=== PATIENT | male | born 1975 | race American Indian/Alaskan Native ===

== ENCOUNTER 2016-07-30 00:09 | Emergency (ER) | payer SELFPAY ==
[2016-07-30 01:06] VITALS: BP 151/99
== END 2016-07-30 05:40 | disposition left against medical advice (07) ==
LOC: ED 00:09
DX: M25.571 Pain in right ankle and joints of right foot (principal); Z53.21 Procedure and treatment not carried out due to patient leaving prior to being seen by health care provider

== ENCOUNTER 2016-07-30 13:42 | Emergency (ER) | payer SELFPAY | END 2016-07-30 15:40 | disposition left against medical advice (07) | LOC: ED 13:42 | DX: M10.9 Gout, unspecified (principal); Z53.21 Procedure and treatment not carried out due to patient leaving prior to being seen by health care provider ==

== ENCOUNTER 2016-07-31 11:00 | Emergency (ER) | payer OTHER ==
--- NOTE | 2016-07-31 14:37 | Emergency Department Report ---
HPI - General Chief Complaint: Extremity Injury, Lower Time Seen by Provider: 07/31/16 14:23 - HPI HPI: Patient here complaining of gout to right ankle. Pain is 8 out of 10. He said he's been needed in full drinking beer for the . Patient reports that he usually takes: Albert but is out. She does not take any maintenance medication for his gout. Patient blood pressure is elevated and he said it's because of pain. Denies any trauma or numbness or tingling to right ankle ED Past Medical Hx - Past Medical History Previous Medical History?: Yes Additional medical history: gout - Surgical History Past Surgical History?: No - Family History Family history: hypertension - Social History Smoking Status: Never Smoker Substance Use Type: Alcohol - Medications Home Medications: Home Medications Medication Instructions Recorded Confirmed Last Taken Type traMADol [Ultram 50 MG tab] 50 mg PO Q6HR PRN #14 tablet 01/24/16 Unknown Rx Colchicine [Colcrys] 0.6 mg PO QDAY #25 tab 07/31/16 Unknown Rx Ibuprofen [Motrin 800 MG tab] 800 mg PO Q8HR PRN #21 tablet 07/31/16 Unknown Rx Prednisone [predniSONE 10 mg 10 mg PO .TAPER #1 tab.ds.pk 07/31/16 Unknown Rx (6-Day Pack, 21 Tabs)] ED Review of Systems ROS: Stated complaint: GOUT Other details as noted in HPI Comment: All other systems reviewed and negative Constitutional: no symptoms reported Respiratory: no symptoms reported Cardiovascular: denies: chest pain, palpitations, edema, syncope Gastrointestinal: denies: abdominal pain, nausea, vomiting, diarrhea Musculoskeletal: joint swelling, arthralgia. denies: back pain Skin: denies: rash Neurological: denies: headache, weakness, numbness, paresthesias, abnormal gait , vertigo Physical Exam - Physical Exam Vital Signs: Vital Signs 07/31/16 12:44 Temperature 98.4 F Pulse Rate 85 Respiratory 18 Rate Blood Pressure 153/101 O2 Sat by Pulse 98 Oximetry Vital Signs 07/31/16 07/31/16 12:44 16:23 Temperature 98.4 F Pulse Rate 85 86 Respiratory 18 20 Rate Blood Pressure 153/101 Blood Pressure 148/100 [Right] O2 Sat by Pulse 98 Oximetry General: This is a 41-year-old male well-nourished well-developed in no acute distress Physical Exam: Head: Normocephalic atraumatic Neck: Supple, no C-spine tenderness, no tracheal deviation. Nontender to palpate. no adenopathy Eyes: Bilateral pupils equal and reactive to light, bilateral EOM intact. Bilateral sclera and conjunctiva without injection. Normal accommodation Lungs: Clear to auscultate bilaterally no rhonchi wheezes or rales. Normal work of breathing Skin: Range of motion to all extremities. +5/5 strength in all extremities extremity; mild swelling without any erythema to right ankle . Area is warm to touch and tender to palpate ,+2 pedal pulses. No neurovascular compromise. Capillary refill less than 3 seconds. No signs of tendon or ligament injuries. No calcaneal tenderness. No foot drop. MSK: Full range of motion to all extremities. +5/5 strength in all extremities. Patient able ambulate with limited pain. Cardiovascular: S1-S2, regular rate rhythm. No murmurs. Skin: clean Dry and intact no rash no lesions Psych: Normal mood and behavior MSK: ED Course Vital Signs 07/31/16 12:44 Temperature 98.4 F Pulse Rate 85 Respiratory 18 Rate Blood Pressure 153/101 O2 Sat by Pulse 98 Oximetry Vital Signs 07/31/16 07/31/16 12:44 16:23 Temperature 98.4 F Pulse Rate 85 86 Respiratory 18 20 Rate Blood Pressure 153/101 Blood Pressure 148/100 [Right] O2 Sat by Pulse 98 Oximetry - Reevaluation(s) Reevaluation #1: 07/31/16 21:04 Patient given Toradol 30 mg and Decadron 10 mg IM and emergency room which relieved his pain. ED Medical Decision Making - Medical Decision Making ED course: Patient with gouty attack. I explained to patient that he needs to avoid eating food that is high in.. He is aware of that is high in. But it was a Super Bowl and eating got out of hand. Pain is down to 3 out of 10. PT given prescription for Motrin, prednisone and Colcrys. Charged home to follow- up with primary care physician. Critical care attestation.: If time is entered above; I have spent that time in minutes in the direct care of this critically ill patient, excluding procedure time. ED Disposition Clinical Impression: Arthralgia of ankle, right Gout attack Qualifiers: Gout site: ankle Gout etiology: unspecified cause Laterality: right Qualified Code(s): M10.9 - Gout, unspecified Disposition: DISCHARGED TO HOME OR SELFCARE Is pt being admited?: No Does the pt Need Aspirin: No Condition: Stable Instructions: Low Purine Diet (ED), Acute Gouty Arthritis (ED), Arthralgia (ED) Prescriptions: Colchicine [Colcrys] 0.6 mg PO QDAY #25 tab Ibuprofen [Motrin 800 MG tab] 800 mg PO Q8HR PRN #21 tablet PRN Reason: Pain Prednisone [predniSONE 10 mg (6-Day Pack, 21 Tabs)] 10 mg PO .TAPER #1 tab.ds.pk Referrals: [facility] [Outside] - 08/02/16 Forms: Work/School Release Form(ED)
[2016-07-31] MEDS: TORADOL IM ONE (14:51)
[2016-07-31] MEDS: DECADRON IM ONE (14:51)
[2016-07-31 16:24] VITALS: BP 148/100
== END 2016-07-31 16:22 | disposition home or self-care (01) ==
LOC: ED 11:00
DX: M10.9 Gout, unspecified (principal); M25.571 Pain in right ankle and joints of right foot
CPT/HCPCS: 96372; 99282; J1100; J1885

== ENCOUNTER 2017-07-11 23:29 | Emergency (ER) | payer SELFPAY ==
[2017-07-12] MEDS ORDERED: DELTASONE PO ONE (05:07)
[2017-07-12] MEDS ORDERED: MOTRIN PO ONE (05:07)
[2017-07-12] MEDS ORDERED: NORCO 5/325 PO ONE (05:07)
--- NOTE | 2017-07-12 05:08 | Emergency Department Report ---
HPI - General Chief Complaint: Extremity Injury, Lower Time Seen by Provider: 07/12/17 04:54 - HPI HPI: Patient reports that his gout is acting up. He said he took his last Colcrysyesterday and now he is in pain at 7 out of 10 and throbbing to his left great toe. Patient said he had some fish and he thinks that's why sugar of the gout flare up. He is requesting a refill on Colcrys. Patient said he took some [id number] pain medication but it didn't work. Pain is worse with movement better with rest ED Past Medical Hx - Past Medical History Previous Medical History?: Yes Additional medical history: gout - Surgical History Past Surgical History?: No - Family History Family history: no significant - Social History Smoking Status: Never Smoker Substance Use Type: None - Medications Home Medications: Home Medications Medication Instructions Recorded Confirmed Last Taken Type traMADol [Ultram 50 MG tab] 50 mg PO Q6HR PRN #14 tablet 01/24/16 Unknown Rx Colchicine [Colcrys] 0.6 mg PO QDAY PRN #15 tab 07/12/17 Unknown Rx Ibuprofen [Motrin 800 MG tab] 800 mg PO Q8HR PRN 5 Days #15 07/12/17 Unknown Rx tablet Prednisone [predniSONE 10 mg 10 mg PO .TAPER 6 Days #1 tab.ds.pk 07/12/17 Unknown Rx (6-Day Pack, 21 Tabs)] ED Review of Systems ROS: Stated complaint: GOUT IN L FOOT Other details as noted in HPI Comment: All other systems reviewed and negative Constitutional: no symptoms reported Respiratory: no symptoms reported Cardiovascular: denies: chest pain, palpitations, dyspnea on exertion, orthopnea , edema, syncope, paroxysmal nocturnal dyspnea Gastrointestinal: denies: abdominal pain, diarrhea, constipation, hematemesis Genitourinary: denies: dysuria Musculoskeletal: denies: back pain, arthralgia, myalgia Skin: denies: rash Neurological: denies: headache, numbness, paresthesias, abnormal gait Physical Exam - Physical Exam Vital Signs: Vital Signs 07/11/17 23:44 Temperature 97.6 F Pulse Rate 77 Respiratory 18 Rate Blood Pressure 132/80 [Left] O2 Sat by Pulse 100 Oximetry General: This is a 42-year-old male well-nourished well-developed in no acute distress. Physical Exam: Head: Normocephalic, atraumatic, no abrasion, no bruising and no contusion. Eyes: Biateral pupils equal and reactive to light, bilateral EOM intact.. Bilateral conjunctival and sclera without injection, normal accommodation. No nystagmus Mouth: Moist, no pharyngeal exudate or erythema. No peritonsillar abscesses. Uvula is midline and oral airways patent. Cardiovascular: S1, S2. Regular rate and rhythm. No murmur. Capillary refill is less then 3 seconds. Lungs: Clear to auscultate bilaterally. No rhonchi, wheezes or rales. No chest wall tenderness. No chest contusion. No bruising to chest. MSK: Strength 5/5 in all extremities. No joint deformity or crepitus. Normal inspection. Full range of motion to all extremities. No laceration, abrasion or ecchymotic area noted. Abdomen: Non-tender to palpate in all quadrants, no guarding or rebound tenderness, positive bowel sounds in all quadrants. No CVA tenderness. No hernia, bruit or mass. No rigidity or distention. Extremities: No clubbing, cyanosis . Patient with swelling and mild erythema with tenderness to palpate to left great toe extending into left foot area. +2 pulses. No neurovascular compromise Skin: Clean, dry and intact. No rash or lesions. Psych: Normal mood and behavior ED Course Vital Signs 07/11/17 23:44 Temperature 97.6 F Pulse Rate 77 Respiratory 18 Rate Blood Pressure 132/80 [Left] O2 Sat by Pulse 100 Oximetry - Reevaluation(s) Reevaluation #1: 07/12/17 05:34 Patient received [place] 5/325 2 tablets in the emergency room, Motrin 600 mg by mouth and prednisone 60 mg by mouth. ED Medical Decision Making - Medical Decision Making ED course: Patient with acute gout flareup with complaints of pain and requests then that his medication for gout be refilled. Patient with positive gout flare to left great toe. He was given Birds[place] 5/325 2 tablets, Motrin 600 mg and prednisone 60 mg when necessary emergency room. Patient stable. I reinforced with him low purine diet. Patient does not have a primary care physician and said he comes to the emergency room to get his medication refill. He was here last on 07/31/2016 for similar symptoms. I discussed the patient that I will refer him to [facility] that he will need to call to schedule an appointment to manage his chronic medical problem. He voiced understanding. Patient discharged home with prescription for colchicine, Motrin and prednisone. Critical care attestation.: If time is entered above; I have spent that time in minutes in the direct care of this critically ill patient, excluding procedure time. ED Disposition Clinical Impression: Arthralgia of left foot Acute gout Qualifiers: Gout site: toe Gout etiology: unspecified cause Laterality: left Qualified Code (s): M10.9 - Gout, unspecified Disposition: [id number] PSY HOSP/PSY UNIT Is pt being admited?: No Does the pt Need Aspirin: No Condition: Stable Instructions: Arthralgia (ED), Acute Gouty Arthritis (ED), Low Purine Diet (ED) Additional Instructions: Please follow up with outside Medical Center for primary care visits. See discharge instruction paperwork for address and phone number Take medication as prescribed Increase your fluid intake See diet that is low in purine to avoid gout flareup Prescriptions: Colchicine [Colcrys] 0.6 mg PO QDAY PRN #15 tab PRN Reason: GOUT Ibuprofen [Motrin 800 MG tab] 800 mg PO Q8HR PRN 5 Days #15 tablet PRN Reason: Pain Prednisone [predniSONE 10 mg (6-Day Pack, 21 Tabs)] 10 mg PO .TAPER 6 Days #1 tab.ds.pk Referrals: [facility] [Outside] - 2-3 Days Forms: Work/School Release Form(ED)
[2017-07-12 05:54] VITALS: BP 130/74
== END 2017-07-12 05:54 ==
LOC: ED 23:29
DX: M10.9 Gout, unspecified (principal)
CPT/HCPCS: 99282; J7512

== ENCOUNTER 2021-07-08 14:23 | Emergency (ER) | payer SELFPAY ==
[2021-07-08 15:15] VITALS: BP 130/71
[2021-07-08] MEDS ORDERED: dexAMETHasone 20 MG/5 ML VIAL IM ONE (15:17)
[2021-07-08] MEDS ORDERED: KETOROLAC 10 MG TAB PO ONE (15:17)
--- NOTE | 2021-07-08 15:19 | Emergency Department Report ---
ED Extremity Problem HPI - General Chief complaint: Extremity Injury, Lower Stated complaint: GOUT PAIN Time Seen by Provider: 07/08/21 15:11 Source: patient Mode of arrival: Ambulatory Limitations: No Limitations - History of Present Illness Initial comments: 46-year-old -Indian male with a history of gout presents to the ER today with complaint of gout flareup to his knees. Patient states that the pain in his knees flared up about a week ago. He reports that the right knee is worse than the left. He reports swelling to both knees. Patient states that he typically has colchicine at home to take as needed when he flares up with the gout, but he has been out for about a month. He currently has no primary care doctor. He denies any bruising, redness, calf pain, chest pain, shortness of breath, fever or chills. MD Complaint: joint swelling, joint paint -: week(s) (1) - Related Data Previous Rx's Medication Instructions Recorded Last Taken Type Ibuprofen [Motrin 800 MG tab] 800 mg PO Q8HR PRN 5 Days #15 07/12/17 Unknown Rx tablet Acetaminophen/Codeine [Tylenol 1 tab PO Q6H PRN #12 tab 07/08/21 Unknown Rx /Codeine # 3 tab] Colchicine [Colcrys] 0.6 mg PO QDAY PRN #15 tab 07/08/21 Unknown Rx methylPREDNISolone [Medrol 4MG 4 mg PO DAILY #1 pack 07/08/21 Unknown Rx DOSEPAK (21 tabs)] Allergies Allergy/AdvReac Type Severity Reaction Status Date / Time No Known Allergies Allergy Verified 03/05/14 01:01 ED Review of Systems ROS: Stated complaint: GOUT PAIN Other details as noted in HPI Comment: All other systems reviewed and negative Musculoskeletal: joint swelling, arthralgia ED Past Medical Hx - Past Medical History Additional medical history: gout - Social History Smoking Status: Never Smoker Substance Use Type: None - Medications Home Medications: Home Medications Medication Instructions Recorded Confirmed Last Taken Type Ibuprofen [Motrin 800 MG tab] 800 mg PO Q8HR PRN 5 Days #15 07/12/17 Unknown Rx tablet Acetaminophen/Codeine [Tylenol 1 tab PO Q6H PRN #12 tab 07/08/21 Unknown Rx /Codeine # 3 tab] Colchicine [Colcrys] 0.6 mg PO QDAY PRN #15 tab 07/08/21 Unknown Rx methylPREDNISolone [Medrol 4MG 4 mg PO DAILY #1 pack 07/08/21 Unknown Rx DOSEPAK (21 tabs)] ED Physical Exam - General Limitations: No Limitations General appearance: alert, in no apparent distress - Respiratory Respiratory exam: Absent: respiratory distress - Cardiovascular Cardiovascular Exam: Present: regular rate - Expanded Lower Extremity Exam Right Knee exam: Present: normal inspection, full ROM, tenderness, full knee extension. Absent: swelling, abrasion, laceration, ecchymosis, deformity, crepidus, dislocation, erythema, effusion Neuro vascular tendon exam: Present: no vascular compromise. Absent: abnormal cap refill, motor deficit, sensory deficit, tendon deficit Gait: Positive: observed and normal Left Knee exam: Present: full ROM (but painful ), tenderness (diffuse), swelling (mild ). Absent: abrasion, laceration, ecchymosis, deformity, crepidus, dislocation, erythema, effusion Neuro vascular tendon exam: Present: no vascular compromise. Absent: abnormal cap refill, motor deficit, sensory deficit, tendon deficit Gait: Positive: not tested/not observed - Neurological Exam Neurological exam: Present: alert, oriented X3, CN II-XII intact, normal gait - Psychiatric Psychiatric exam: Present: normal affect, normal mood - Skin Skin exam: Present: intact ED Course Vital Signs 07/08/21 15:08 Temperature 98.3 F Pulse Rate 89 Respiratory 18 Rate Blood Pressure 130/71 O2 Sat by Pulse 98 Oximetry Critical care attestation.: If time is entered above; I have spent that time in minutes in the direct care of this critically ill patient, excluding procedure time. ED Disposition Clinical Impression: Gouty arthritis of both knees Disposition: 01 HOME / SELF CARE / HOMELESS Is pt being admited?: No Does the pt Need Aspirin: No Condition: Stable Instructions: Low-Purine Eating Plan Additional Instructions: Take the tylenol 3 and the medrol dose pack as prescribed. You'll be given a prescription for few colchicine to take for any future flareups. It is important that you try to establish with a primary care doctor to continue getting refills on colchicine. If you do not have a primary care doctor 1 will be provided. Discharge instructions. Return to the ER if your symptoms worsens or changes in any way. Prescriptions: Colchicine [Colcrys] 0.6 mg PO QDAY PRN #15 tab PRN Reason: GOUT methylPREDNISolone [Medrol 4MG DOSEPAK (21 tabs)] 4 mg PO DAILY #1 pack Acetaminophen/Codeine [Tylenol /Codeine # 3 tab] 1 tab PO Q6H PRN #12 tab PRN Reason: Pain , Severe (7-10) Referrals: PATRICA LEE MD [Staff Physician] - 3-5 Days BLANQUITA PRINCE MD [Staff Physician] - 3-5 Days Forms: Work/School Release Form(ED) Time of Disposition: 15:21
== END 2021-07-08 15:30 | disposition home or self-care (01) ==
LOC: ED 14:23
DX: M10.9 Gout, unspecified (principal)
CPT/HCPCS: 96372; 99281; J1100

== ENCOUNTER 2021-12-31 08:21 | Emergency (ER) | payer SELFPAY ==
[2021-12-31 08:47] VITALS: BP 119/78
[2021-12-31] MEDS ORDERED: LIDOCAINE (2%) 20 MG/1 ML VIAL 20 ML MDV INFILTRATI ONE (10:53)
[2021-12-31] MEDS ORDERED: TETANUS,DIPH,PERTUSS(ACELL) VACCINE 0.5 ML SYRINGE IM ONE (10:53)
[2021-12-31] MEDS ORDERED: HYDROcodone/ACETAMINOPHEN 10-325MG TAB PO ONE (10:55)
--- NOTE | 2021-12-31 11:06 | Emergency Department Report ---
- General Chief Complaint: Wound/Laceration Stated Complaint: LAC/FINGER Time Seen by Provider: 12/31/21 10:46 Source: patient Mode of arrival: Ambulatory Limitations: No Limitations - History of Present Illness Initial Comments: This is a 46-year-old male nontoxic, well nourished in appearance, no acute signs of distress presents to the ED with c/o of right 4th and 5th finger la ceration. Patient stated that he was working on a car today prior to arrival which caused the laceration. Patient denies decreased sensation or range of motion. Patient stated bleeding is under control. Denies any numbness, tingling, fever, chills, nausea, vomiting, chest pain, shortness of breath, headache or stiff neck. Patient denies any allergies to significant past medical history. Patient is that he is not up-to-date with tetanus. -: This morning Patient Tetanus UTD: No Context: accidental Associated Symptoms: pain. denies: loss of feeling/numbness, suspect foreign body present, unable to move injured part, weakness followed by dizziness, nausea/vomiting, fever - Related Data Previous Rx's Medication Instructions Recorded Last Taken Type Ibuprofen [Motrin 800 MG tab] 800 mg PO Q8HR PRN 5 Days #15 07/12/17 Unknown Rx tablet Acetaminophen/Codeine [Tylenol 1 tab PO Q6H PRN #12 tab 07/08/21 Unknown Rx /Codeine # 3 tab] Colchicine [Colcrys] 0.6 mg PO QDAY PRN #15 tab 07/08/21 Unknown Rx methylPREDNISolone [Medrol 4MG 4 mg PO DAILY #1 pack 07/08/21 Unknown Rx DOSEPAK (21 tabs)] Naproxen 500 mg PO Q8H PRN #20 tab 12/31/21 Unknown Rx cephALEXin [Keflex] 500 mg PO Q8HR #21 cap 12/31/21 Unknown Rx Allergies Allergy/AdvReac Type Severity Reaction Status Date / Time No Known Allergies Allergy Verified 03/05/14 01:01 ED Review of Systems ROS: Stated complaint: LAC/FINGER Other details as noted in HPI Comment: All other systems reviewed and negative Constitutional: denies: chills, fever Eyes: denies: eye pain, eye discharge, vision change ENT: denies: ear pain, throat pain Respiratory: denies: cough, shortness of breath, wheezing Cardiovascular: denies: chest pain, palpitations Endocrine: no symptoms reported Gastrointestinal: denies: abdominal pain, nausea, diarrhea Genitourinary: denies: urgency, dysuria Musculoskeletal: denies: back pain, joint swelling, arthralgia Skin: denies: rash, lesions Neurological: denies: headache, weakness, paresthesias Psychiatric: denies: anxiety, depression Hematological/Lymphatic: denies: easy bleeding, easy bruising ED Past Medical Hx - Past Medical History Additional medical history: gout - Surgical History Past Surgical History?: No - Social History Smoking Status: Never Smoker - Medications Home Medications: Home Medications Medication Instructions Recorded Confirmed Last Taken Type Ibuprofen [Motrin 800 MG tab] 800 mg PO Q8HR PRN 5 Days #15 07/12/17 Unknown Rx tablet Acetaminophen/Codeine [Tylenol 1 tab PO Q6H PRN #12 tab 07/08/21 Unknown Rx /Codeine # 3 tab] Colchicine [Colcrys] 0.6 mg PO QDAY PRN #15 tab 07/08/21 Unknown Rx methylPREDNISolone [Medrol 4MG 4 mg PO DAILY #1 pack 07/08/21 Unknown Rx DOSEPAK (21 tabs)] Naproxen 500 mg PO Q8H PRN #20 tab 12/31/21 Unknown Rx cephALEXin [Keflex] 500 mg PO Q8HR #21 cap 12/31/21 Unknown Rx ED Physical Exam - General Limitations: No Limitations General appearance: alert, in no apparent distress - Head Head exam: Present: atraumatic, normocephalic - Eye Eye exam: Present: normal appearance - Neck Neck exam: Present: normal inspection, full ROM. Absent: lymphadenopathy - Respiratory Respiratory exam: Absent: respiratory distress - Cardiovascular Cardiovascular Exam: Present: regular rate - Extremities Exam Extremities exam: Present: full ROM, tenderness, normal capillary refill. Absent: joint swelling - Expanded Upper Extremity Exam Right General: Present: normal inspection Shoulder Exam: Present: normal inspection, full ROM. Absent: tenderness, swelling Upper Arm exam: Present: normal inspection, full ROM. Absent: tenderness, swelling Elbow exam: Present: normal inspection, full ROM. Absent: tenderness, swelling Forearm Wrist exam: Present: normal inspection, full ROM. Absent: tenderness, swelling Hand Wrist exam: Present: full ROM, tenderness, laceration. Absent: swelling, abrasion, ecchymosis, deformity, crepidus, dislocation, erythema, amputation, nail avulsion, subungual hematoma Hand L/R Front: 1 - Positive: laceration (Irregular about 3 cm laceration near) 2 - Positive: laceration (Irregular about 4 cm laceration here) Vascular: Present: normal capillary refill. Absent: vascular compromise (Neurovascular within normal limits) - Back Exam Back exam: Present: full ROM - Neurological Exam Neurological exam: Present: alert, oriented X3, normal gait - Psychiatric Psychiatric exam: Present: normal affect, normal mood - Skin Skin exam: Present: warm, dry, intact, normal color. Absent: rash ED Course Vital Signs 12/31/21 08:43 Temperature 98.3 F Pulse Rate 86 Respiratory 18 Rate Blood Pressure 119/78 O2 Sat by Pulse 96 Oximetry - Reevaluation(s) Reevaluation #1: 12/31/21 11:06 Patient is speaking in full sentences with no signs of distress noted. - Laceration /Wound Repair Right Finger Wound Location: upper extremity Wound Length (cm): 3 Wound's Depth, Shape: irregular Wound Explored: clean Irrigated w/ Saline (ccs): 40 Betadine Prep?: Yes Volume Anesthetic (ccs): 4 (lidocaine 2% plain) Wound Repaired With: sutures Suture Size/Type: 5:0, proline Number of Sutures: 23 Sterile Dressing Applied?: Yes Progress: Under sterile field, I used Betadine to clean the area. I then used 40 mL of normal saline to flush the area. I then used 2% lidocaine plain and injected 4 mL to right fifth finger digital block and 4 ml to the right fourth finger digital block. I then used a 5-0 Prolene to suture the laceration. Number of stitches 12 to right 5th finger and 11 sutures to right 4th finger. I then applied a sterile 4 x 4 with tape. Minimal bleeding noted but is under control. Patient tolerated procedure well with no signs of distress. ED Medical Decision Making - Radiology Data [facility] [address] [place] [address] XRay Report Signed Patient: ROBBIN MAYORGA MR#: [id number] : 1975 Acct:[id number] Age/Sex: 46 / M ADM Date: 12/31/21 Loc: ED Attending Dr: Ordering Physician: RAYMON LIU NP Date of Service: 12/31/21 Procedure(s): XR hand 3+V RT Accession Number(s): [id number] cc: RAYMON LIU NP Fluoro Time In Minutes: RIGHT HAND 3 VIEWS INDICATION: 4th and 5th fingers lac. COMPARISON: None. IMPRESSION: Soft tissue defect/lacerations are identified medially on digits 4 and 5. No radiopaque foreign body is detected on x-ray. No acute osseous injury or joint pathology. Signer Name: Mark Jessica Jr, MD Signed: 12/31/2021 11:11 AM Workstation Name: [id number] Transcribed By: TTR Dictated By: MARK JESSICA JR, MD Electronically Authenticated By: MARK JESSICA JR, MD Signed Date/Time: 12/31/21 1111 DD/ 1111 TD/TT: - Medical Decision Making This is a 46-year-old male that presents with laceration. Patient is stable and was examined by me. The laceration suturing has been performed and has been performed and patient tolerated well. A sterile dressing has been applied. Patient was educated on proper wound care. Patient is discharged with Keflex and naproxen. Patient was instructed to return in 10 days for suture removal. Patient received a tetanus booster in ER. Patient was instructed to refer to Follow-up with a primary care doctor in 3-5 days or if symptoms worsen and continue return to emergency room as soon as possible. At time of discharge, the patient does not seem toxic or ill in appearance. No acute signs of distress noted. Patient agrees to discharge treatment plan of care. No further questions noted by the patient. Critical care attestation.: If time is entered above; I have spent that time in minutes in the direct care of this critically ill patient, excluding procedure time. ED Disposition Clinical Impression: Laceration Disposition: HOME / SELF CARE / HOMELESS Is pt being admited?: No Does the pt Need Aspirin: No Condition: Stable Instructions: Laceration Care, Adult Additional Instructions: Follow-up with a primary care doctor in 3-5 days or if symptoms worsen and continue return to emergency room as soon as possible. Return in 10 days for suture removal. No physical activity that extremity until suture removal. Prescriptions: cephALEXin [Keflex] 500 mg PO Q8HR #21 cap Naproxen 500 mg PO Q8H PRN #20 tab PRN Reason: Pain , Severe (7-10) Referrals: PATRICA LEE MD [Primary Care Provider] - 3-5 Days PRIMARY CAREMD [Referring] - 3-5 Days Forms: Work/School Release Form(ED) Time of Disposition: 12:46
--- NOTE | 2021-12-31 11:20 | XRay Report ---
RIGHT HAND 3 VIEWS INDICATION: 4th and 5th fingers lac. COMPARISON: None. IMPRESSION: Soft tissue defect/lacerations are identified medially on digits 4 and 5. No radiopaque foreign body is detected on x-ray. No acute osseous injury or joint pathology. Signer Name: Mark Jessica Jr, MD Signed: 12/31/2021 11:11 AM Workstation Name: [id number]
== END 2021-12-31 12:59 | disposition home or self-care (01) ==
LOC: ED 08:21
DX: S61.214A Laceration without foreign body of right ring finger without damage to nail, initial encounter (principal); S61.216A Laceration without foreign body of right little finger without damage to nail, initial encounter; M10.9 Gout, unspecified; X58.XXXA Exposure to other specified factors, initial encounter; Y93.89 Activity, other specified; Y92.89 Other specified places as the place of occurrence of the external cause; Y99.8 Other external cause status
CPT/HCPCS: 12002; 73130; 90471; 90715; 99283; J3490

== ENCOUNTER 2022-01-11 12:20 | Emergency (ER) | payer SELFPAY ==
[2022-01-11 13:07] VITALS: BP 136/92
--- NOTE | 2022-01-11 13:42 | Emergency Department Report ---
- General Chief Complaint: Laceration/Recheck/Suture Stated Complaint: STICHES REMOVED FROM RIGHT HAND Source: patient Mode of arrival: Ambulatory Limitations: No Limitations - History of Present Illness Initial Comments: Patient is a 46-year-old -[place] male with a history of gouty arthropathy who presents to the ED for wound recheck and suture removal from a previously sutured right ring and small finger lacerations. Patient states that the pain has been worsening and that the wounds have been draining thick purulent discharge. Patient states that he has not been compliant with the antibiotics that were previously prescribed. Patient denies fever, chills, nausea and vomiting, numbness and tingling or weakness of right hand right ring and small fingers. -: Gradual, days(s) (11) Extremity Location: Right: Hand (right small and ring finger wounds) Place: home Patient Tetanus UTD: Yes Context: accidental Associated Symptoms: pain. denies: loss of feeling/numbness, suspect foreign body present, unable to move injured part, weakness followed by dizziness, nausea/vomiting, fever Treatments Prior to Arrival: bandage - Related Data Previous Rx's Medication Instructions Recorded Last Taken Type Colchicine [Colcrys] 0.6 mg PO QDAY PRN #15 tab 07/08/21 Unknown Rx methylPREDNISolone [Medrol 4MG 4 mg PO DAILY #1 pack 07/08/21 Unknown Rx DOSEPAK (21 tabs)] Naproxen 500 mg PO Q8H PRN #20 tab 12/31/21 Unknown Rx Acetaminophen/Codeine [Tylenol 1 tab PO Q6H PRN #12 tab 01/11/22 Unknown Rx /Codeine # 3 tab] Ibuprofen [Motrin 800 MG tab] 800 mg PO Q8HR PRN 5 Days #30 01/11/22 Unknown Rx tablet cephALEXin [Keflex] 500 mg PO Q8HR #21 cap 01/11/22 Unknown Rx Allergies Allergy/AdvReac Type Severity Reaction Status Date / Time No Known Allergies Allergy Verified 03/05/14 01:01 ED Review of Systems ROS: Stated complaint: STICHES REMOVED FROM RIGHT HAND Other details as noted in HPI Constitutional: denies: chills, fever Eyes: denies: eye pain, eye discharge, vision change ENT: denies: ear pain, throat pain Respiratory: denies: cough, shortness of breath, wheezing Cardiovascular: denies: chest pain, palpitations Endocrine: no symptoms reported Gastrointestinal: denies: abdominal pain, nausea, diarrhea Genitourinary: denies: urgency, dysuria Musculoskeletal: arthralgia (painful right ring and small fingers due to ulcerated previously sutured wounds with purulent discharge). denies: back pain, joint swelling Skin: other (painful ulcerated right ring and small finger wounds with purulent discharge). denies: rash, lesions Neurological: denies: headache, weakness, paresthesias Psychiatric: denies: anxiety, depression Hematological/Lymphatic: denies: easy bleeding, easy bruising ED Past Medical Hx - Past Medical History Hx Arthritis: Yes (Gouty arthropathy) Additional medical history: gout - Social History Smoking Status: Never Smoker - Medications Home Medications: Home Medications Medication Instructions Recorded Confirmed Last Taken Type Colchicine [Colcrys] 0.6 mg PO QDAY PRN #15 tab 07/08/21 Unknown Rx methylPREDNISolone [Medrol 4MG 4 mg PO DAILY #1 pack 07/08/21 Unknown Rx DOSEPAK (21 tabs)] Naproxen 500 mg PO Q8H PRN #20 tab 12/31/21 Unknown Rx Acetaminophen/Codeine [Tylenol 1 tab PO Q6H PRN #12 tab 01/11/22 Unknown Rx /Codeine # 3 tab] Ibuprofen [Motrin 800 MG tab] 800 mg PO Q8HR PRN 5 Days #30 01/11/22 Unknown Rx tablet cephALEXin [Keflex] 500 mg PO Q8HR #21 cap 01/11/22 Unknown Rx ED Physical Exam - General Limitations: No Limitations General appearance: alert, in no apparent distress - Head Head exam: Present: atraumatic, normocephalic, normal inspection - Eye Eye exam: Present: normal appearance, PERRL, EOMI Pupils: Present: normal accommodation - ENT ENT exam: Present: normal exam, normal orophraynx, mucous membranes moist, TM's normal bilaterally, normal external ear exam - Neck Neck exam: Present: normal inspection, full ROM. Absent: tenderness - Respiratory Respiratory exam: Present: normal lung sounds bilaterally. Absent: respiratory distress, rales, rhonchi, chest wall tenderness, prolonged expiratory - Cardiovascular Cardiovascular Exam: Present: regular rate, normal rhythm, normal heart sounds. Absent: systolic murmur, diastolic murmur, rubs, gallop - GI/Abdominal GI/Abdominal exam: Present: soft, normal bowel sounds. Absent: tenderness, guarding, rebound, hyperactive bowel sounds, organomegaly, mass, pulsatile mass - Extremities Exam Extremities exam: Present: normal inspection, full ROM, tenderness (Palpable right ring and small finger tenderness due to ulcerated open wounds with sutures and thick purulent discharge), normal capillary refill. Absent: pedal edema, joint swelling, calf tenderness - Back Exam Back exam: Present: normal inspection, full ROM. Absent: tenderness, CVA tenderness (L), muscle spasm, paraspinal tenderness, vertebral tenderness - Neurological Exam Neurological exam: Present: alert, oriented X3, CN II-XII intact, normal gait, reflexes normal - Psychiatric Psychiatric exam: Present: normal affect, normal mood - Skin Skin exam: Present: warm, dry, intact, normal color, other (Ulcerated open with thick purulent discharge and localized tenderness previously sutured wounds on right ring and small fingers). Absent: rash ED Course Vital Signs 01/11/22 12:56 Temperature 98.3 F Pulse Rate 77 Respiratory 18 Rate Blood Pressure 136/92 [Left] O2 Sat by Pulse 99 Oximetry ED Medical Decision Making - Medical Decision Making This is a 46-year-old -[place] male with a history of gouty arthropathy who presents to the ED for wound recheck and suture removal from a previously sutured right ring and small finger lacerations. Patient states that the pain has been worsening and that the wounds have been draining thick purulent discharge. Patient states that he has not been compliant with the antibiotics that were previously prescribed. In the ED, patient is alert and oriented x3 and is not in any distress. The sutures were removed successfully from the right small and ring finger lacerations that were previously applied. The wound was then extensively debrided with normal saline and dressed appropriately. Patient was discharged home and advised to continue taking the previously prescribed antibiotics and pain medications and to follow-up with his primary care physician in 7 to 10 days for reevaluation or return to the ED immediately if symptoms get worse. - Differential Diagnosis Infected wound; finger laceration; wound dehiscence Critical care attestation.: If time is entered above; I have spent that time in minutes in the direct care of this critically ill patient, excluding procedure time. ED Disposition Clinical Impression: Encounter for removal of sutures Infected finger laceration Qualifiers: Encounter type: subsequent encounter Qualified Code(s): S61.219D - Laceration without foreign body of unspecified finger without damage to nail, subsequent encounter; L08.9 - Local infection of the skin and subcutaneous tissue, unspecified Disposition: 01 HOME / SELF CARE / HOMELESS Is pt being admited?: No Does the pt Need Aspirin: No Condition: Stable Instructions: Wound Care, Adult, Wound Closure Removal, Care After, Sutures, [place], or Adhesive Wound Closure, [id number], Sutured Wound Care, [id number] Additional Instructions: Continue taking the previously prescribed antibiotics and pain medication as needed. Follow-up with your primary care physician in 7 to 10 days for reevaluation. Return to the ED immediately if symptoms get worse Prescriptions: cephALEXin [Keflex] 500 mg PO Q8HR #21 cap Ibuprofen [Motrin 800 MG tab] 800 mg PO Q8HR PRN 5 Days #30 tablet PRN Reason: Pain Acetaminophen/Codeine [Tylenol /Codeine # 3 tab] 1 tab PO Q6H PRN #12 tab PRN Reason: Pain , Severe (7-10) Referrals: [facility] [Provider Group] - 7-10 days Forms: Work/School Release Form(ED) Time of Disposition: 13:40 Print Language: IVORIAN
== END 2022-01-11 13:12 | disposition home or self-care (01) ==
LOC: ED 12:20
DX: S61.214D Laceration without foreign body of right ring finger without damage to nail, subsequent encounter (principal); B96.89 Other specified bacterial agents as the cause of diseases classified elsewhere; M19.90 Unspecified osteoarthritis, unspecified site; X58.XXXD Exposure to other specified factors, subsequent encounter
CPT/HCPCS: 99282

== ENCOUNTER 2022-01-15 10:58 | Emergency (ER) | payer SELFPAY ==
--- NOTE | 2022-01-15 11:22 | Emergency Department Report ---
Suture/Staple Removal - HPI Stated Complaint: WOUND CHECK Time Seen by Provider: 01/15/22 11:20 Wound Location: Hand ED Review of Systems ROS: Stated complaint: WOUND CHECK Other details as noted in HPI Comment: All other systems reviewed and negative ED Past Medical Hx - Past Medical History Previous Medical History?: Yes Hx Arthritis: Yes (Gouty arthropathy) Additional medical history: gout - Surgical History Past Surgical History?: Yes - Family History Family history: no significant - Social History Smoking Status: Never Smoker Substance Use Type: None - Medications Home Medications: Home Medications Medication Instructions Recorded Confirmed Last Taken Type Colchicine [Colcrys] 0.6 mg PO QDAY PRN #15 tab 07/08/21 Unknown Rx methylPREDNISolone [Medrol 4MG 4 mg PO DAILY #1 pack 07/08/21 Unknown Rx DOSEPAK (21 tabs)] Naproxen 500 mg PO Q8H PRN #20 tab 12/31/21 Unknown Rx Acetaminophen/Codeine [Tylenol 1 tab PO Q6H PRN #12 tab 01/11/22 Unknown Rx /Codeine # 3 tab] Ibuprofen [Motrin 800 MG tab] 800 mg PO Q8HR PRN 5 Days #30 01/11/22 Unknown Rx tablet cephALEXin [Keflex] 500 mg PO Q8HR #21 cap 01/11/22 Unknown Rx Suture Removal Exam - Exam General: Vital signs noted. No distress. Alert and acting appropriately. Wound: No Pathologic Erythema, No Tenderness, No Drainage, No Pus, No Wound Dehiscence Other Systems: All other systems reviewed and are unremarkable. ED Recheck MDM - Core Measures Measure Exclusions: not indicated - Differential Diagnosis Wound Recheck - Medical Decision Making Patient is a 46-year-old male who comes to the ER 2 days after having sutures removed for his wound check. He states he was told to come back. Wound is granulating in. There is no open areas. No purulence. He has full range of motion. No fever or chills. He has a lot of Neosporin on the wound which was cleaned off. Wound care provided and hand wrapped. Patient is to continue his antibiotics. He is being discharged home with discharge plan of care including diet, activity, medications, wound care and follow-up. He verbalizes understanding of plan of care Vital Signs 01/15/22 11:20 Temperature 97.8 F Pulse Rate 60 Respiratory 14 Rate Blood Pressure 151/90 O2 Sat by Pulse 99 Oximetry Critical care attestation.: If time is entered above; I have spent that time in minutes in the direct care of this critically ill patient, excluding procedure time. ED Disposition Clinical Impression: Visit for wound check Disposition: 01 HOME / SELF CARE / HOMELESS Is pt being admited?: No Does the pt Need Aspirin: No Condition: Stable Instructions: Wound Care, Adult Additional Instructions: keep wound clean and dry keep covered when at work Referrals: PATRICA LEE MD [Primary Care Provider] - 3-5 Days Forms: Work/School Release Form(ED) Time of Disposition: 11:27
[2022-01-15 11:24] VITALS: BP 151/90
== END 2022-01-15 13:25 | disposition home or self-care (01) ==
LOC: ED 10:58
DX: S61.219A Laceration without foreign body of unspecified finger without damage to nail, initial encounter (principal); X58.XXXA Exposure to other specified factors, initial encounter; Y93.89 Activity, other specified; Y92.89 Other specified places as the place of occurrence of the external cause; Y99.8 Other external cause status